=== PATIENT | male | born 1995 | race Caucasian/White ===

== ENCOUNTER 2021-02-12 10:58 | Emergency (ER) | payer SELFPAY ==
--- NOTE | 2021-02-12 | XR_ITS ---
WS: [id number] Right hand, 3 views, 02/12/2021 Clinical Data: INJURY, LACERATION Comparison: None. Findings: No fractures or dislocations are seen. The soft tissues are unremarkable. The joint space s are normal There is a bandage surrounding the right second finger. XR/XR hand RT min 3V* [id number] Impression: Negative right hand.
[2021-02-12 11:19] VITALS: BP 142/88; PULSE 97; RESP 16; TEMP 36.6; O2SAT 96; BMI 30.8
--- NOTE | 2021-02-12 13:31 | ED_ITS ---
HPI - Wound/Laceration General: Chief Complaint: Wound/Laceration Stated Complaint: RIGHT INDEX FINGER LAC Time Seen by Provider: 02/12/21 13:05 History of Present Illness: HPI narrative: Patient is a 26-year-old male comes to the ED with a laceration to right index finger. Patient says injury occurred just prior to arrival. He says he was using a machete to cut through some branches on his property and excellently cut his finger. He says he immediately bandaged it up to try to stop the bleeding. He says the pain is mild and he was able to control the bleeding with pressure and a bandage. He has full range of motion in right index finger. He said he is not up-to-date on his tetanus. Associated symptoms: Denies chills, fever(s), nausea or vomiting Review of Systems Const: Denies: fever(s), chills or fatigue Eyes: Denies: change in vision or eye discomfort ENMT: Denies: throat pain, odynophagia, nasal discharge or nasal congestion Card: Denies: chest pain, palpitations, edema, swelling of feet/ankles, dyspnea on exertion or orthopnea Resp: Denies: dyspnea, productive cough or non-productive cough GI: Denies: abdominal pain, nausea, vomiting, diarrhea, constipation or hematochezia : Denies: flank pain, difficulty urinating, dysuria or hematuria Musc: Denies: neck pain, back pain or extremity swelling Skin/Breast: Reports: new lesions (right index finger laceration); Denies: rash Neuro: Denies: headache(s), numbness in extremities or weakness in extremities Physical Exam Const: COMMON NORMALS: no acute distress, patient oriented x3, healthy appearing and alert GENERAL APPEARANCE: cooperative and comfortable HENMT: COMMON NORMALS: normocephalic HEAD & SCALP: normocephalic MOUTH: Normal oral and palatal mucosa present THROAT: posterior oropharynx normal and uvula midline Neck/C-Spine: COMMON NORMALS: supple GENERAL: Yes normal visual inspection Resp: COMMON NORMALS: normal respiratory effort, No retractions, No use of accessory muscles and clear to auscultation bilaterally AUSCULTATION: clear to auscultation bilaterally Cardio: COMMON NORMALS: regular rate, regular rhythm, S1 normal heart sound present, S2 normal heart sound present, No gallops present (Cardio), No clicks present (Cardio), No murmurs present (Cardio) and Peripheral pulses 2+ throughout RATE: regular rate RHYTHM: regular rhythm HEART SOUNDS: S1 normal heart sound present and S2 normal heart sound present PERIPHERAL PULSES: Peripheral pulses 2+ throughout GI: COMMON NORMALS: Normal to inspection, nondistended, normoactive bowel sounds present, Soft to palpation, non-tender and no masses PALPATION: Yes Soft to palpation : COMMON NORMALS: Yes no CVA tenderness BLADDER/KIDNEY EXAM: Yes no CVA tenderness Back/Pelvis: COMMON NORMALS: no CVA tenderness Extremity: NARRATIVE EXTREMITY EXAM: Right hand?index finger-dorsal aspect?superficial 1 cm linear laceration. No active bleeding or foreign body seen. GENERAL: Yes normal exam except as noted Neuro: COMMON NORMALS: patient oriented x3 and moves all extremities SENSORIUM/ORIENTATION: Yes alert Skin: NARRATIVE SKIN EXAM: Right hand?index finger-dorsal aspect?superficial 1 cm linear laceration. No active bleeding or foreign body seen. GENERAL SKIN EXAM: dry skin Procedures Laceration Laceration 1: Site: hand (Index finger) Side (If applicable): right Size (cm): 1 Description: linear and clean Depth: simple, single layer Local Anesthetic: lidocaine 1% and with epi Amount of anesthesia used (mL): 10 Pre-repair: irrigated extensively (With normal saline and cleaned with CHG swab.) Skin layer closed with: nylon Size (cm): 4-0 Number of sutures: 4 Technique: simple, interrupted Course Vital Signs: Vital signs: Vital Signs Temperature 97.9 F 02/12/21 11:19 Pulse Rate 97 02/12/21 11:19 Respiratory Rate 16 02/12/21 11:19 Blood Pressure 142/88 02/12/21 11:19 Pulse Oximetry 96 02/12/21 11:19 MDM - Wound/Laceration MDM Narrative: Medical decision making narrative: Patient is a 26-year-old male comes to the ED with a laceration to right index finger. Laceration was irrigated extensively with normal saline and cleaned with CHG swab lidocaine 1% with epi was used as local and sutures were placed to close laceration. See procedure notes for details. Patient was given updated tetanus and discharged home on cephalexin. He was instructed on suture care and told to follow-up in 7 to 10 days to have his sutures removed. Patient understood and agree with plan. Imaging Data^: Xray Ortho: Attestation: I personally reviewed and interpreted this imaging study as follows: Radiologist's impression: [address] [place] [address] XRay Report Signed Patient: Octaviano Godinez Unit #: [id number] : [id number] Age/Sex: 26 / M ADM Date: 02/12/21 Loc: ER Room/Bed: Attending Dr: Ordering Provider/Ordering MD: Feliciano Benedict Date of Service: 02/12/21 Procedure(s): XR hand RT min 3V* [id number] Accession Number(s): [id number] Report Number: [id number] WS: [id number] Right hand, 3 views, 02/12/2021 Clinical Data: INJURY, LACERATION Comparison: None. Findings: No fractures or dislocations are seen. The soft tissues are unremarkable. The joint spaces are normal There is a bandage surrounding the right second finger. XR/XR hand RT min 3V* [id number] Impression: Negative right hand. Dictated By: Lakeshia Devi MD Signed By: Lakeshia Devi MD Signed Date/Time: 02/12/211328 DD/ 1328 Discharge Plan Discharge Patient Disposition: Home Clinical Impression: Laceration Condition: Stable Prescriptions: New cephalexin 500 mg capsule 500 mg PO Q6H 4 Days Qty: 16 RF: 0 Discharge Orders: Discharge ED (Routine); Ordered 02/12/21 Ordered By: Feliciano Benedict Discharge Diet: Regular Discharge Activity: Resume usual activity Patient Instructions: Laceration (ED) Activity Restrictions/Additional Instructions: Take full course of antibiotics as prescribed. Keep laceration site clean and dry for the next 48 hours. Then after that you can clean and re-bandage daily. Watch for signs of infection such as redness, warmth, increased tenderness and puslike drainage. If you see the signs of infection return to the ED, urgent care or PCP for reevaluation. call your PCP to schedule a follow-up appointment for reevaluation and suture removal in about 10 days. Continue taking all home meds. Follow discharge plans as discussed. You can return to the ED if symptoms worsen. Coding Level of Care Code ED Tool Room Lathe Operator for Chg Fwd Exam Comprehensive
[2021-02-12] MEDS: tetanus-dipt-pertussis 0.5 mL SDV IM (13:40)
== END 2021-02-12 14:27 | disposition home or self-care (01) ==
PROVIDERS: Emergency Provider Physician Assistant
DX: S61.210A Laceration without foreign body of right index finger without damage to nail, initial encounter (principal); W26.0XXA Contact with knife, initial encounter; Z23 Encounter for immunization
CPT/HCPCS: 12001; 73130; 90471; 90715; 99282; A6446